=== PATIENT | male | born 1980 | race Caucasian/White ===

== ENCOUNTER 2016-08-26 08:02 | Emergency (ER) | payer BC ==
--- NOTE | ~2016-08-26 | CR72 ---
[facility] A Service of [facility] & [facility] RADIOLOGY TEXT RESULTS PATIENT: CARMEN AVALOS LOCATION: [facility] : 76 UNIT #: [id number] AGE: [address]: Leobardo Buchanan MD SEX: M ORDER DR: [id number] [facility] [address] [place], [place] [address] [id number] MR#: [id number] Acc #: [id number] NAME: CARMEN AVALOS : 1980 SEX: M STUDY DATE/TIME: 08/26/2016 8:31 UNIT: [facility] ROOM: STUDY DESCRIPTION: CR Chest Single View Portable Attending Physician: Gianni Buchanan M.D. Ordering Physician: Ed Paulo Mcmahan M.D. Primary Care Physician: No Primary Care Physician MEDICAL IMAGING REPORT This report is preliminary unless electronic signature is present EXAM Portable chest HISTORY Mid-sternal chest pain, onset today. TECHNIQUE Single AP view of the chest was obtained. FINDINGS A single AP portable view of the chest shows both lungs to be clear. The heart is normal in size. The mediastinal contour is normal. No significant bone abnormalities are seen. IMPRESSION Normal portable chest. Dictated by... Carmen Bautista M.D. THIS IS AN ELECTRONICALLY VERIFIED REPORT Carmen Bautista M.D. at 08/26/2016 3:44 PM HANNAH/abdiel TD: 08/26/2016 12:48 JOB #: [id number] MEDICAL IMAGING REPORT Page 1 of 1 COPY
--- NOTE | ~2016-08-26 | EKG ---
PATIENT: CARMEN AVALOS UNIT #: [id number] Ventricular Rate: 63 BPM Atrial Rate: 63 BPM P-R Interval: 142 ms QRS Duration: 86 ms Q-T Interval: 406 ms QTC Calculation(Bezet): 415 ms P [place]: 62 degrees Calculated R [place]: 47 degrees Calculated T [place]: 55 degrees Diagnosis Line: Normal sinus rhythm Diagnosis Line: Normal ECG Diagnosis Line: No previous ECGs available Diagnosis Line: Confirmed by MAX BANUELOS MD ([id number]) on 08/26/2016 Diagnosis Line: 8:37:47 PM INTERPRETING MD: LAKISHA AGIURRE
[~2016-08-26 08:02] MED LIST: AUGMENTIN PO; FLEXERIL PO; KETOPROFEN PO
[2016-08-26 08:57] LABS: BASOPHIL# 0.1 X10e3 (0-0.3); BASOPHIL% 0.9 % (0-2.5); EOSINOPHIL# 0.4 X10e3 (0-0.7); EOSINOPHIL% 3.7 % (0.0-7.0); HEMATOCRIT 44.7 % (38.0-50.0); HEMOGLOBIN 15.1 gm/dL (13.0-16.0); LYMPHOCYTE% 26.4 % (17.0-45.0); MEAN CORPUSCULAR HEMOGLOBIN 31.3 PG (28-34); MEAN CORPUSCULAR HGB CONC 33.7 g/dL (30-36); MEAN PLATELET VOLUME 8.8 FL (6.5-11.5); MONOCYTE# 0.7 X10e3 (0-1.0); MONOCYTE% 6.4 % (3.0-12.0); NEUTROPHIL# 7.1 X10e3 (1.5-7.1); NEUTROPHIL% 62.6 % (40-75); PLATELET COUNT 231 X10e3 (140-420); RED BLOOD COUNT 4.81 X10e (3.90-5.60); RED CELL DISTRIBUTION WIDTH 13.2 % (11.0-15.5); WHITE BLOOD COUNT 11.4 X10e3 (4.0-10.5)
[2016-08-26 08:59] LABS: DIFF IND NO
[2016-08-26 09:03] LABS: POC - CKMB <1.0 ng/mL (0.0-7.9); POC - TROPONIN <0.05 ng/mL (<=0.05)
[2016-08-26 09:41] LABS: BUN/CREATININE RATIO 13.33; CALCIUM SERUM 9.2 mg/dL (8.4-10.2); CREATININE SERUM 0.9 mg/dL (0.6-1.4); POTASSIUM 3.8 mmol/L (3.5-5.1)
[2016-08-26 10:55] LABS: POC - CKMB <1.0 ng/mL (0.0-7.9); POC - TROPONIN <0.05 ng/mL (<=0.05)
== END 2016-08-26 11:46 | disposition home or self-care (01) ==
LOC: CED 08:02
PROVIDERS: Emergency Medicine
DX: R07.89 Other chest pain (principal); F17.210 Nicotine dependence, cigarettes, uncomplicated
CPT/HCPCS: 36415; 71010; 80048; 82553; 84484; 85025; 93005; 96374; 99285; J1885